=== PATIENT | male | born 1980 | race Caucasian/White ===

== ENCOUNTER 2023-12-27 18:31 | Emergency (ER) | payer OTHER, SELFPAY ==
[2023-12-27 18:38] VITALS: BP 158/103; PULSE 96; RESP 20; TEMP 37.1; O2SAT 97; BMI 29.3
[2023-12-27] MEDS: NITROGLYCERIN 0.4 MG TAB.SUBL SUBLINGUAL (19:33)
--- OUTSIDE RECORDS SUMMARY | 2023-12-27 19:43 | XMS_ITS | Referral Summary ---
Author Organization [facility] Address [address] [place], [place] [address] [address] Care Team Providers Care Hvac Engineering Technician Name Role Phone LonnieHugo Primary Care Provide r Allergies No known active allergies Medications Medication Sig Dispensed Refills Start Date End Date Status NO ACTIVE MEDICATIONS Active OMEPRAZOLE PO Take 20 mg by mouth Active methylPREDNISolone (MEDROL DOSEPAK) 4 MG tablet therapy pack Follow Package Directions 21 tablet 11/14/2021 Active Active Problems Problem Noted Date Diagnosed Date CARDIOVASCULAR SCREENING; LDL GOAL LESS THAN 160 10/07/2013 Mixed hyperlipidemia 10/07/2013 Esophageal reflux Immunizations Name Administration Dates Next Due Influenza (IIV3) PF 12/20/2009 TD,PF 7+ (Tenivac) 03/10/1998 TDAP Vaccine (Adacel) 01/16/2010 Social History Tobacco Use Types Packs/Day Years Used Date Smoking Tobacco: Former Smokeless Tobacco: Never Comments:socially,last over one year ago Alcohol Use Standard Drinks/Week Comments Yes 0 (1 standard drink = 0.6 oz pur e alcohol) few times per week PHQ-2 Answer Date Recorded PHQ-2 Score 0 03/25/2018 Adolescent Education Answer Date Record ed Getting School Help Needed Not on file 12/07 Sex and Gender Information Value Date Recorded Sex Assigned at Not on file Gender Identity Not on file Sexual Orientation Not on file Last Filed Vital Signs Vital Sign Reading Time Taken Comments Blood Pressure 139/86 11/14/2021 1:16 PM CDT Pulse 53 11/14/2021 1:16 PM CDT Temperature 36.3 ??C (97.4 ??F) 11/14/2021 10:20 AM C DT Respiratory Rate 18 11/14/2021 1:16 PM CDT Oxygen Saturation 96% 11/14/2021 1:16 PM CDT Inhaled Oxygen Concentration - - Weight 98.9 kg (218 lb 0.6 oz) 04/14/2017 3:26 P M [facility] Height 180.3 cm (5' 11) 06/04/2016 3:05 PM CDT Body Mass Index 30.41 06/04/2016 3:05 PM CDT Plan of Treatment Not on file Procedures Procedure Name Priority Date/Time Associated Diagnosis Comments BASIC METABOLIC PANEL STAT 04/14/2017 4:35 PM [facility] LIPID PROFILE Routine 01/16/2010 10:58 AM [facility] Routine general medical examination at a health care facility from Last 3 Months or Most Recently Relevant to Health Maintenance Results * Basic metabolic panel (04/14/2017 4:35 PM [facility]) Sodium 135 133 - 144 mmol/L 04/14/2017 5:16 PM [facility] Potassium 4.2 3.4 - 5.3 mmol/L 04/14/2017 5:16 PM [facility] Chloride 101 94 - 109 mmol/L 04/14/2017 5:16 PM [facility] Carbon Dioxide 29 20 - 32 mmol/L 04/14/2017 5:16 PM [facility] Anion Gap 5 3 - 14 mmol/L 04/14/2017 5:16 PM [facility] Glucose 93 70 - 99 mg/dL 04/14/2017 5:16 PM [facility] Urea Nitrogen 12 7 - 30 mg/dL 04/14/2017 5:16 PM [facility] Creatinine 1.08 0.66 - 1.25 mg/dL 04/14/2017 5:16 PM [facility] GFR Estimate 77 >60 mL/min/1.7 m2 04/14/2017 5:16 PM [facility] Comment:Non GFR Calc GFR Estimate If Black >90 >60 mL/min/1.7 m2 04/14/2017 5:16 PM [facility] Comment: GFR Calc Calcium 9.0 8.5 - 10.1 mg/dL 04/14/2017 5:16 PM [facility] Blood specimen (specimen) 04/14/2017 4:35 PM [facility] 04/14/2017 4:50 PM [facility] Jesi Townsend MD LAB - BLOOD ORDERABL ES [facility] [address] [phone] * (ABNORMAL) Lipid panel (01/16/2010 10:58 AM [facility]) Cholesterol 204(H) 0 - 200 mg/dL [facility] Comment: LDL Cholesterol is the primary guide to therapy. The NCEP recommends further evaluation of: patients with cholesterol <200 mg/dL if additional risk factors are present, cholesterol >240 mg/dL, triglycerides >150 mg/dL, or HDL <40 mg/dL. Triglycerides 254(H) 0 - 150 mg/dL [facility] HDL Cholesterol 31(L) 40 - 110 mg/dL [facility] LDL Cholesterol Calculated 122 0 - 129 mg/dL [facility] Comment: LDL Cholesterol is the primary guide to therapy: LDL-cholesterol goal in high risk patients is <100 mg/dL and in very high risk patients is <70 mg/dL. VLDL-Cholesterol 51(H) 0 - 30 mg/dL [facility] Cholesterol/HDL Ratio 6.6(H) 0.0 - 5.0 [facility] Blood specimen (specimen) 01/16/2010 10:58 AM [facility] 01/16/2010 11:03 AM [facility] Sherice Boateng MD LAB - B LOOD ORDERABLES [facility] from Last 3 Months or Most Recently Relevant to Health Maintenance Care Teams Hvac Engineering Technician Relationship Specialty Start Date End Date Hugo Fleming DO [address] [facility] [address] [place], [place] [address] PCP - General Family Medicine 11/14/21
--- OUTSIDE RECORDS SUMMARY | 2023-12-27 19:43 | XMS_ITS | Clinical Summary ---
Author Organization [facility] Address [address] [place], [place] [address]natal[place] [address] Care Team Providers Care Pr Specialist Name Role Phone Gio Flemingjuni Al Primary Care Provide r Allergies No known [...] 7+ (Tenivac) 03/10/1998 TDAP Vaccine (Adacel) 01/16/2010 Family History Medical History Relation Comments Cancer Maternal Grandfather skin Cerebrovascular Disease Paternal Grandfather Asthma No family hx of C.A.D. No family hx of Cancer - colorectal No family hx of Diabetes No family hx of Hypertension No family hx of Prostate Cancer No family hx of Relation Status Comments Father Alive Maternal Grandfather Alive Maternal Grandmother Alive Mother Alive Paternal Grandfather Paternal Grandmother Alive Sister Alive x1 Social History Tobacco Use Types Packs/Day Years [...] lb 0.6 oz) 04/14/2017 3:26 P M [facility] Height 180.3 cm (5' 11) 06/04/2016 3:05 PM CDT Body Mass Index 30.41 06/04/2016 3:05 PM CDT Plan of Treatment Health Maintenance Due Date Last Done Comments ADVANCE CARE PLANNING 1980 ANNUAL REVIEW OF HM ORDERS 1980 HIV SCREENING 1995 HEPATITIS C SCREENING 1998 HEPATITIS B IMMUNIZATION (1 of 3 - 19+ 3-dose series) 1999 LIPID 01/16/2011 01/16/2010 GLUCOSE 04/14/2020 04/14/2017, 04/11, 01/16/2010 YEARLY PREVENTIVE VISIT 08/16/2021 08/16/2020, 01/16 PHQ-2 (once per calendar year) 2023 06/04/2016 COVID-19 Vaccine ( season) 2023 06/16/2020 INFLUENZA VACCINE (#1) 2023 01/08/2018, 2009 DTAP/TDAP/TD IMMUNIZATION (7 - Td or Tdap) 09/07/2029 09/08/2019, 01/16/2010, 03/10/1998, Additional history exists RSV VACCINE (1 - 1-dose 75+ series) 2055 HPV IMMUNIZATION Aged Out No longer e ligible based on patient's age to complete this topic MENINGITIS IMMUNIZATION Aged Out No l onger eligible based on patient's age to complete this topic Pneumococcal Vaccine: Pediatrics (0 to 5 Years) and At-Risk Patients (6 to 64 Years) Aged Out No longer eligible based on patient's age to complete this topic RSV MONOCLONAL ANTIBODY Aged Out No l onger eligible based on patient's age to complete this topic Procedures Procedure Name Priority Date/Time Associated Diagnosis Comments BASIC METABOLIC PANEL STAT 04/14/2017 4:35 PM [facility] LIPID PROFILE Routine 01/16/2010 10:58 AM [facility] Routine general medical examination at a health care facility from Last 3 Months or Most Recently Relevant to Health Maintenance Results * Basic metabolic panel (04/14/2017 4:35 PM [facility]) Sodium 135 133 - 144 mmol/L 04/14/2017 5:16 PM [facility] Potassium 4.2 3.4 - 5.3 mmol/L 04/14/2017 5:16 PM [facility] Chloride 101 94 - 109 mmol/L 04/14/2017 5:16 PM [facility] Carbon Dioxide 29 20 - 32 mmol/L 04/14/2017 5:16 PM [facility] Anion Gap 5 3 - 14 mmol/L 04/14/2017 5:16 PM [facility] Glucose 93 70 - 99 mg/dL 04/14/2017 5:16 PM [facility] Urea Nitrogen 12 7 - 30 mg/dL 04/14/2017 5:16 PM [facility] Creatinine 1.08 0.66 - 1.25 mg/dL 04/14/2017 5:16 PM [facility] GFR Estimate 77 >60 mL/min/1.7 m2 04/14/2017 5:16 PM [facility] Comment:Non GFR Calc GFR Estimate If Black >90 >60 mL/min/1.7 m2 04/14/2017 5:16 PM [facility] Comment: GFR Calc Calcium 9.0 8.5 - 10.1 mg/dL 04/14/2017 5:16 PM [facility] Blood specimen (specimen) 04/14/2017 4:35 PM [facility] 04/14/2017 4:50 PM [facility] Jesi oTwnsend MD LAB - BLOOD ORDERABL ES [facility] [address] [phone] * (ABNORMAL) Lipid panel (01/16/2010 10:58 AM [facility]) Cholesterol 204(H) 0 - 200 mg/dL [facility] Comment: LDL Cholesterol is the primary guide to therapy. The NCEP recommends further evaluation of: patients with cholesterol <200 mg/dL if additional risk factors are present, cholesterol >240 mg/dL, triglycerides >150 mg/dL, or HDL <40 mg/dL. Triglycerides 254(H) 0 - 150 mg/dL [facility] HDL Cholesterol 31(L) 40 - 110 mg/dL [facility] LDL Cholesterol Calculated 122 0 - 129 mg/dL [facility] Comment: LDL Cholesterol is the primary guide to therapy: LDL-cholesterol goal in high risk patients is <100 mg/dL and in very high risk patients is <70 mg/dL. VLDL-Cholesterol 51(H) 0 - 30 mg/dL [facility] Cholesterol/HDL Ratio 6.6(H) 0.0 - 5.0 [facility] Blood specimen (specimen) 01/16/2010 10:58 AM [facility] 01/16/2010 11:03 AM [facility] Sherice Boateng MD LAB - B LOOD ORDERABLES [facility] from Last 3 Months or Most Recently Relevant to Health Maintenance Care Teams Pr Specialist Relationship Specialty Start Date End Date Hugo Fleming DO [address] [place] [address] [place] [id number] PCP - General Family Medicine 11/14/21
--- OUTSIDE RECORDS SUMMARY | 2023-12-27 19:43 | XMS_ITS | Clinical Summary ---
Author Organization [facility] [facility] Address [place], [place] [address] Care Team Providers Care Mergers And Acquisitions Banker Name Role Phone Hugo Fleming Primary Care Provide r Allergies No known active allergies Medications Medication Sig Dispensed Refills Start Date End Date Status famotidine (PEPCID) 20 mg tabletIndications:Chr onic GERD TAKE 1 TABLET (20 MG) BY MOUTH 2 TIMES DAILY IF NEEDED FOR HEARTBURN. 180 Tablet 1 05/27/2022 Active losartan (COZAAR) 25 mg tabletIndications:HTN (hypertension) Take 1 Tablet (25 mg) by mouth once daily. 90 Tablet 3 02/19/2023 Active Active Problems Problem Noted Date Diagnosed Date Chronic GERD 04/22/2017 HTN (hypertension) 04/22/2017 Dyslipidemia 04/22/2017 Immunizations Name Administration Dates Next Due COVID-19 vaccine (Honey-J& J) RADHA DAVISON 06/16/2020 COVID-19 vaccine (Moderna 100mcg/0.5mL) RADHA DAVISON 01/15/2021 DTaP 07/09/1985, 2,1980,1980 Hepatitis A (Adult) 02/21/2021,08/16/2020 Influenza, IIV4 02/19/2023,01/08/2018 Influenza,CCIIV4 PRESERV FREE 12/18/2021, 021,12/17/2019 MMR 05/04/1992,07/24/1981 Polio Virus, Unspecified 07/09/1985,09/23/1981,0 1980 Td, Preservative Free (age > = 7 Years) 03/10/1998 Tdap 09/08/2019,01/16/2010 Family History Medical History Relation Name Comments Hypertension Father Hypertension Mother No Known Problems Sister Relation Name Status Comments Daughter Alive Father Alive Mother Alive Sister Alive Son Alive Social History Tobacco Use Types Packs/Day Years Used Date Smoking Tobacco: Never Smokeless Tobacco: Never Alcohol Use Standard Drinks/Week Comments Yes 4 (1 standard drink = 0.6 oz pur e alcohol) PHQ-2 Answer Date Recorded PHQ-2 TOTAL SCORE 0 02/19/2023 Social Connections Answer Date Recorded Frequency of Communication with Friends and Fami ly 0 02/18/2023 Financial Resource Strain Answer Date R ecorded Difficulty of Paying Living Expenses 3 02/18/2023 Difficulty of Paying Living Expenses Not on file 02/18/2023 Food Insecurity Answer Date Recorded Worried About Running Out of Food in the Last Ye ar 1 02/18/2023 Transportation Needs Answer Date Record ed Lack of Transportation (Medical) 1 02/18/2023 Housing Stability Answer Date Recorded Unable to Pay for Housing in the Last Year 1 02/18/2023 Sex and Gender Information Value Date Recorded Sex Assigned at Not on file Gender Identity Not on file Sexual Orientation Not on file Obstetrics History Last Filed Vital Signs Vital Sign Reading Time Taken Comments Blood Pressure 134/78 02/19/2023 9:40 AM SCRIPT WRITER Pulse 57 02/19/2023 9:40 AM SCRIPT WRITER Temperature 36.4 ??C (97.5 ??F) 01/20/2022 6:02 PM CS T Respiratory Rate 18 08/04/2022 2:41 PM CDT Oxygen Saturation 99% 02/19/2023 9:40 AM SCRIPT WRITER Inhaled Oxygen Concentration - - Weight 93 kg (205 lb) 01/20/2022 6:02 PM SCRIPT WRITER Height 177.8 cm (5' 10) 01/20/2022 6:02 PM SCRIPT WRITER Body Mass Index 29.41 01/20/2022 6:02 PM SCRIPT WRITER Plan of Treatment Health Maintenance Due Date Last Done Comments BMI (ht and wt on same day) for age 18+ 11/20/2022 11/20/2021, 08/16/2020, 06/03/2018, Additional history exists COVID-19 vaccine series ( season) 2023 01/15/2021, 06/16/2020 Influenza for age 9-49 11/09/2023 3, 12/18/2021, 12/08/2020, Additional history exists Depression screening for age 12+ 02/20/2024 02/19/2023, 11/20/2021, 08/16/2020, Additional history exists Lipids for age 35-44 02/20/2028 02/19/2023, 11/20/2021, 08/16/2020, Additional history exists Tetanus booster 09/07/2029 09/08/2019, 11/2009, 03/10/1998 Tdap Completed 09/08/2019, 01/16/2010 Hepatitis C screening for age 18-79 Completed 11/20/2021 HIV for age 15-65 Completed 02/19/2023 Pneumococcal series for age 6-64 Aged Out No longer eligible based on patient's age to complete this topic Procedures Procedure Name Priority Date/Time Associated Diagnosis Comments ANTI HIV 1/2 Routine 02/19/2023 10:36 AM SCRIPT WRITER Encounter for screening for HIV LIPID PANEL W REFLEX MEASURED LDL Routine 02/19/2023 10:36 AM SCRIPT WRITER Lipid screening ANTI HCV Routine 11/20/2021 9:56 AM CDT Need for hepatitis C screening test from Last 3 Months or Most Recently Relevant to Health Maintenance Results * (ABNORMAL) LIPID PANEL W REFLEX MEASURED LDL (02/19/2023 10:36 AM SCRIPT WRITER) CHOLESTEROL,TOTAL 162 100 - 199 mg/dL 02/19/2023 10:12 PM SCRIPT WRITER [facility] Comment: Cholesterol, Total Reference Ranges Desirable <200 mg/dL Borderline 200-239 mg/dL High >=240 mg/dL TRIGLYCERIDES 154(H) <150 mg/dL 02/19/2023 10:12 PM SCRIPT WRITER [facility] HDL CHOLESTEROL 27(L) >40 mg/dL 3 10:12 PM SCRIPT WRITER [facility] NON-HDL CHOLESTEROL 135 <145 mg/dl 02/19/2023 10:12 PM [facility] CHOL/HDL RATIO 6.00(H) <4.50 02/19/2023 10:12 PM SCRIPT WRITER [facility] LDL CHOLESTEROL 104 <=130 mg/dL 02/19/2023 10:12 PM SCRIPT WRITER [facility] VLDL CHOLESTEROL 31(H) <=30 mg/dL 02/19/2023 10:12 PM SCRIPT WRITER [facility] PROVIDER ORDERED STATUS FASTING 02/19/2023 10:12 PM SCRIPT WRITER [facility] Blood BLOOD SPECIMEN / Unknown Venipuncture / Unknown 02/19/2023 10:36 AM SCRIPT WRITER 02/19/2023 10:38 AM SCRIPT WRITER Hugo Fleming DO CHEMISTRY Performing Organization Address City/[facility]/ZIP Co de Phone Number [facility] [address] [place] [address], * ANTI HIV 1/2 (02/19/2023 10:36 AM SCRIPT WRITER) Pathologist [facility] HIV-1/HIV-2 SCREEN Non-Reacti ve Non-Reacti ve 02/19/2023 9:51 PM SCRIPT WRITER [facility] Comment:HIV-1 p24 and HIV-1/ HIV-2 Ab Not Detected. Blood BLOOD SPECIMEN / Unknown Venipuncture / Unknown 02/19/2023 10:36 AM SCRIPT WRITER 02/19/2023 10:38 AM SCRIPT WRITER Hugo Fleming DO SEND OUTS [facility] [address] [place] [address], [place] * ANTI HCV (11/20/2021 9:56 AM CDT) Pathologist [facility] HEPATITIS C ANTIBODY Non-React cristobal Non-React cristobal 11/20/2021 5:55 PM CDT [facility] Comment:Antibodies to HCV no t detected; does not exclude the possibility of exposure to HCV. Blood BLOOD SPECIMEN / Unknown Venipuncture / Unknown 11/20/2021 9:56 AM CDT 11/20/2021 9:57 AM CDT Hugo Fleming DO SEND OUTS [facility] [address] [place] [address], from Last 3 Months or Most Recently Relevant to Health Maintenance Care Teams Mergers And Acquisitions Banker Relationship Specialty Start Date End Date Hugo Fleming DO [address] [facility] [address] [place] [address] PCP - General Family Practice 06/03/18
[2023-12-27] MEDS: SIMETHICONE/SOD BICARB/CIT AC 1 EACH GRAN.EF.PK PO (19:45)
[2023-12-27 20:54] VITALS: BP 152/94; PULSE 85; RESP 18; O2SAT 99
--- NOTE | 2023-12-27 20:56 | ED.GENADULT ---
HPI - General Adult General Chief complaint: Difficulty Swallowing Stated complaint: pain in throat, burning in chest Time Seen by Provider: 12/27/23 19:21 Source: patient and family Mode of arrival: ambulatory Limitations: no limitations History of Present Illness HPI narrative: 43-year-old male with a history of hypertension presenting today with food stuck in his throat. Patient states that he was eating a sandwich around 3:00 p.m.. this afternoon when the food got stuck and he has not been able to get it out. He has tried vomiting. And he has tried eating since. Every time he eats or even drinks the food comes right back up. He is not having difficulty breathing. There is no blood in his vomitus. He states that this has happened in the past with state but he is generally able to vomited up. Patient has been spitting in a cup because he is unable to swallow his own spit. He denies ever having an EGD in the past. Related Data Home Medications ?Medication ?Instructions ?Recorded ?Confirmed losartan 25 mg tablet 25 mg PO DAILY 12/27/23 12/27/23 Allergies Allergy/AdvReac Type Severity Reaction Status Date / Time No Known Drug Allergies Allergy Verified 12/27/23 18:37 Review of Systems Status of ROS: Reports: 10 or more systems reviewed and unremarkable except as noted in History and below PFSH PFS Social History Smoking Status: Never smoker Do you use any of these nicotine containing products: E-Cigarettes Second hand tobacco smoke exposure: No How often do you have a drink containing alcohol: 2-4 times a month How many standard drinks containing alcohol do you have on a typical day: 1 or 2 How often do you have six or more drinks on one occasion: Never AUDIT-C Alcohol total score: 2 Non-prescribed substance use: denies use service: No Exam Narrative: Exam Narrative: Well-nourished well-developed patient in mild distress, patient uncomfortable. Alert and oriented. Answers questions appropriately. Mood and affect are appropriate. Thoughts are goal oriented and rational. No tangential or magical thinking noted. Patient speaks in full sentences without needing to catch his breath. Speech is not slurred or pressured. He is breathing and speaking without difficulty. HEENT: Normocephalic atraumatic. Pupils are equally round reactive to light. Extraocular muscles are intact. Conjunctivae are moist without any icterus noted. Moist mucous membranes. Posterior pharynx is normal. Neck is soft without any lymphadenopathy or thyromegaly. No masses are appreciated. Cardiovascular: Heart is regular rate and rhythm S1 and S2 are present without any murmurs. Lungs: Clear to auscultation bilaterally no wheezes rhonchi or rales are appreciated. Patient takes deep breaths without any discomfort. Abdomen: Soft and nontender nondistended with normal bowel sounds. Skin: Warm, dry, intact. Const: Vital Signs, click to edit/add: Vital Signs - 24 hr 12/27/23 18:38 12/27/23 20:54 Temperature 98.8 F Pulse Rate [Pulse Oximeter] 96 85 Respiratory Rate 20 18 Blood Pressure [Ri ght Upper Arm] 158/103 H 152/94 H Pulse Oximetry 97 99 Oxygen Delivery Me thod Room Air Room Air Course Course ED Course: Sublingual nitro and EZ gas were given to the patient. This was not successful. Spoke to , who unfortunately informed us that we do not have the staff necessary to perform endoscopy at this time. Spoke to Dr. Vivas, at [facility] ER who will accept the patient for transfer. He did recommend a dose of glucagon prior to discharge however patient was in hurry to get to [facility], so we opted to not do this treatment at this time. Patient will be transferred to [facility] via private vehicle. be driving. He did not feel that ambulance ride was necessary. Vital Signs Vital signs: Initial Vital Signs Temperature 98.8 F 12/27/23 18:38 Temperature Source Temporal Artery Scan 12/27/23 18:38 Pulse Rate 96 12/27/23 18:38 Pulse Rhythm Regular 12/27/23 18:38 Respiratory Rate 20 12/27/23 18:38 Blood Pressure 158/103 H 12/27/23 18:38 Blood Pressure Mean 121 H 12/27/23 18:38 Blood Pressure Position Sitting 12/27/23 18:38 Pulse Oximetry 97 12/27/23 18:38 Oxygen Delivery Method Room Air 12/27/23 18:38 Vital Signs Temperature 98.8 F 12/27/23 18:38 Pulse Rate 96 12/27/23 18:38 Respiratory Rate 20 12/27/23 18:38 Blood Pressure 158/103 H 12/27/23 18:38 Pulse Oximetry 97 12/27/23 18:38 Oxygen Delivery Method Room Air 12/27/23 18:38 Temperature 98.8 F 12/27/23 18:38 Pulse Rate 85 12/27/23 20:54 Respiratory Rate 18 12/27/23 20:54 Blood Pressure 152/94 H 12/27/23 20:54 Pulse Oximetry 99 12/27/23 20:54 Oxygen Delivery Method Room Air 12/27/23 20:54 Medications Administered Medications: Discontinued Medications Generic Name Dose Route Start Last Admin Trade Name Freq PRN Reason Stop Dose Admin Nitroglycerin 0.4 mg 12/27/23 19:24 12/27/23 19:33 Nitroglycerin 0.4 Mg Tab.Subl SUBLINGUAL 12/27/23 19:25 0.4 mg ONCE ONE Administration Simethicone/Sodium Bicarb/Citric Ac 1 each 12/27/23 19:24 12/27/23 19:45 Simethicone/Sod Bicarb/Cit Ac 1 Each Gran.Ef.Pk PO 12/27/23 19:25 1 each ONCE ONE Administration Medical Decision Making MDM Narrative Medical decision making narrative: Food impaction of the esophagus. Treatment and plan per above. Discharge Plan Discharge Clinical Impression: Esophageal obstruction due to food impaction Patient Disposition: Xfer Other Discharge Location: [facility] Condition: Stable Additional Instructions: Please proceed directly to [facility] ER. Activity Level: No Restrictions Discharge Diet: Regular Prescriptions: No Action losartan 25 mg tablet 25 mg PO DAILY Stand Alone Forms: [employer] Info Instructions
== END 2023-12-27 21:11 | disposition other institution (70) ==
PROVIDERS: Emergency Provider Family Medicine; PCP Family Medicine
DX: T18.120A Food in esophagus causing compression of trachea, initial encounter (principal)
CPT/HCPCS: 99284; A9270